=== PATIENT | male | born 1960 | race Caucasian/White ===

== ENCOUNTER 2016-12-11 09:54 | Day surgery (SDC) | payer OTHER ==
[2016-12-11 10:50] VITALS: BMI 29.7
--- NOTE | 2016-12-11 11:25 | CP.SDSHP ---
Same Day Surgery H & P - History Proposed Procedure: colonoscopy - Allergies Allergies: Allergies No Known Allergies Allergy (Verified 12/11/16 10:50) - Physical Exam Vital Signs: Vital Signs 12/11/16 10:51 Temperature 97.5 F L Pulse Rate 72 Respiratory 18 Rate Blood Pressure 130/91 H O2 Sat by Pulse 98 Oximetry - Date & Time Date: 12/11/16 Time: 11:24 Short Stay Discharge - Short Stay Discharge Admitting Diagnosis/Reason for Visit: ENCOUNTER FOR SCREENING FOR MALIGNANT NEOPLASM OF Disposition: HOME/ ROUTINE
[2016-12-11] MEDS ORDERED: Propofol 10 mg/ml Inj (20 ML) ONE ×2 (12:28→12:39)
[2016-12-11] MEDS ORDERED: Simethicone 40 mg/0.6 ml Liquid (30 ml) ONE (12:40)
[2016-12-11 13:36] VITALS: TEMP 97.8
[2016-12-11 13:37] VITALS: O2SAT 100
[2016-12-11 14:19] VITALS: BP 129/81; PULSE 66; RESP 18
== END 2016-12-11 13:51 | disposition home or self-care (01) ==
LOC: C.ENDO 09:54
PROVIDERS: ATTEND Colon & Rectal Surgery
DX: Z12.11 Encounter for screening for malignant neoplasm of colon (principal); K62.1 Rectal polyp; K64.8 Other hemorrhoids; D12.0 Benign neoplasm of cecum
CPT/HCPCS: 45380; 45385; 88305; J2704